=== PATIENT | female | born 1965 | race Caucasian/White ===

== ENCOUNTER → 2019-12-22 18:40 | Outpatient (CLI) | payer OTHER ==
[2019-12-22 18:53] LABS: BASOPHILS 0.3 % (0-2); EOSINOPHILS 2.3 % (0-7); HEMATOCRIT 42.7 % (36.0-48.0); HEMOGLOBIN 13.4 g/dL (12-16); IMMATURE GRANULOCYTES 0.2 % (0-5); LYMPHOCYTES 12.3 % (15-50); MCH 28.3 pg (26.0-34.0); MCHC 31.4 g/dL (31.0-37.0); MCV 90.1 fL (80.0-100.0); MEAN PLATELET VOLUME 9.6 fL (7.4-10.4); MONOCYTES 3.3 % (2-11); NEUTROPHILS 81.6 % (40-80); PLATELET COUNT 264 10x3/uL (130-400); RBC 4.74 10x6/uL (4.00-5.40); RDW 13.4 % (11.5-14.5); WBC 6.6 10x3/uL (4.8-10.8)
[2019-12-22 19:21] LABS: URIC ACID 4.7 mg/dL (2.6-7.2)
[2019-12-22 19:54] LABS: ERYTHROCYTE SEDIMENTATION RATE 18 mm/hr (0-30)
[2019-12-24 10:08] LABS: ANA REFLEX - DIRECT Negative (Negative)
== END | disposition home or self-care (01) ==
LOC: D.LABREF 18:40
PROVIDERS: ATTEND Clinical Nurse Specialist Family Health
DX: M25.511 Pain in right shoulder (principal)